=== PATIENT | female | born 1960 | race Caucasian/White ===

== ENCOUNTER 2020-11-18 04:12 | Inpatient (IN) | payer OTHER ==
[~2020-11-18] VITALS: Ht 167.6 cm; Wt 119.0 kg
[2020-11-18 04:35] LABS: Calcium, Ionized (POC) 1.08 mmol/L (1.10-1.46); Chloride (POC) 100 mmol/L (98-108); Creatinine (POC) 1.1 mg/dL (0.6-1.0); Glucose (ISTAT POC) 254 mg/dL (70-99); Hemoglobin (POC) 17.3 g/dL (12.0-16.0); Potassium (POC) 4.4 mmol/L (3.5-5.5); Sodium (POC) 136 mmol/L (135-148); Total CO2 (POC) 26 mmol/L (21-32)
[2020-11-18 04:36] LABS: PCO2 Arterial 87.1 mmHg (35-45); PO2 Arterial 118 mmHg (80-100); pH Blood Arterial 6.97 (7.35-7.45)
[2020-11-18 04:46] LABS: Hematocrit 49.9 % (33.0-51.0); Hemoglobin 15.3 g/dL (11.5-16.0); Mean Corpuscular HGB 28.7 pg (26.0-34.0); Mean Corpuscular HGB Conc 30.7 g/dL (31.5-36.5); Mean Corpuscular Volume 94 fL (80-100); Mean Platelet Volume 10.2 fL (9.1-12.4); NRBC ABSOLUTE 0.03 K/mm3 (0.00-0.02); NRBC Auto 0.1 /100 WBC (0.0-0.2); Platelet Count 197 K/mm3 (150-400); RDW Coefficient Variation 15.7 % (11.7-14.2); RDW Standard Deviation 53.5 fL (35.1-46.3); Red Blood Cell Count 5.33 M/mm3 (3.80-5.20); White Blood Cell Count 26.34 K/mm3 (4.00-11.30)
[2020-11-18 05:00] LABS: Albumin, Blood 2.9 g/dL (3.4-5.0); Albumin/Globulin Ratio 0.9 (0.8-1.8); Bilirubin, Total 0.4 mg/dL (0.1-1.0); Bun/Creatinine Ratio 35.1 (12.0-20.0); Calcium, Blood 7.8 mg/dL (8.5-10.1); Creatinine, Blood 0.91 mg/dL (0.40-1.00); Globulin, Blood 3.2 g/dL (2.2-4.0); Potassium, Blood 4.4 mmol/L (3.5-5.5); Total Protein, Blood 6.1 g/dL (6.4-8.2)
[2020-11-18 05:15] LABS: BAND PERCENT MAN 3 % (0-8); BASOPHILS PERCENT MAN 0 % (0-2); EOSINOPHILS ABSOLUTE MAN 0.26 K/mm3 (0.00-0.68); EOSINOPHILS PERCENT MAN 1 % (0-6); LYMPHOCYTES ABSOLUTE MAN 5.26 K/mm3 (0.84-5.20); LYMPHOCYTES PERCENT MAN 20 % (21-46); METAMYELOCYTE ABSOLUTE MAN 0.26 K/mm3 (0.00-0.00); METAMYELOCYTE PERCENT MAN 1 % (0-0); MONOCYTES ABSOLUTE MAN 1.84 K/mm3 (0.16-1.47); MONOCYTES PERCENT MAN 7 % (4-13); MYELOCYTE ABSOLUTE MAN 1.05 K/mm3 (0.00-0.00); MYELOCYTE PERCENT MAN 4 % (0-0); NEUTROPHILS ABSOLUTE MAN 17.64 K/mm3 (1.96-9.15); SEG NEUTROPHILS PERCENT MAN 64 % (41-73); TOTAL CELLS COUNTED 100
[2020-11-18 05:20] LABS: Troponin I 0.152 ng/mL (0.000-0.040)
[2020-11-18 05:58] LABS: PCO2 Arterial 67.1 mmHg (35-45); PO2 Arterial 100 mmHg (80-100); pH Blood Arterial 7.16 (7.35-7.45)
[2020-11-18 06:03] LABS: Source, Urine Catheter
[2020-11-18 06:06] LABS: Bilirubin, Urine Neg (Neg); Blood, Urine 5+ (Neg); Glucose Qualitative, Urine 3+ (Neg); Ketones, Urine Neg (Neg); Leukocyte Esterase, Urine 1+ (Neg); Nitrite, Urine Neg (Neg); Protein, Urine 4+ (Neg); Specific Gravity, Urine 1.025 (1.003-1.022); Urobilinogen, Urine NORM (Normal)
[2020-11-18 06:13] LABS: Appearance, Urine Hazy (Clear); Color, Urine Yellow (P-Yellow)
[2020-11-18 06:14] LABS: Red Blood Cells, Urine 50-100 /hpf (0-2)
[2020-11-18 06:15] LABS: Amorphous Heavy (0-Heavy); Bacteria Mod /hpf; Squamous Epithelial Cells Few /hpf (Few)
[2020-11-18 06:28] LABS: U Amphetamine Screen Not Detected; U Barbituate Screen Not Detected; U Benzodiazapine Screen DETECTED; U Buprenorphine Screen Not Detected; U Cannabinoids Screen DETECTED; U Cocaine Screen Not Detected; U Methadone Screen Not Detected; U Methamphetamine Screen Not Detected; U Opiates Screen DETECTED; U Oxycodone Screen DETECTED; U Phencyclidine Screen Not Detected; U Propoxyphene Screen Not Detected
--- NOTE | 2020-11-18 07:20 | NUR ---
PT ARRIVED TO ICU AT 0640. INTUBATED AND SEDATED. PT CURRENTLY RECEIVING AMIODARONE AND PROPOFOL @ 10 MCG. TEMP LAWS PATENT AND DRAINING TO GRAVITY. PT DIAPHORETIC. HR 130'S, SBP 140'S, SPO2 95%. REPORT GIVEN TO VIRGEN SANDHU.
[2020-11-18 09:16] LABS: Hematocrit 50.8 % (33.0-51.0); Hemoglobin 15.8 g/dL (11.5-16.0); Mean Corpuscular HGB 28.3 pg (26.0-34.0); Mean Corpuscular HGB Conc 31.1 g/dL (31.5-36.5); Mean Corpuscular Volume 91 fL (80-100); Mean Platelet Volume 9.8 fL (9.1-12.4); NRBC ABSOLUTE 0.04 K/mm3 (0.00-0.02); NRBC Auto 0.1 /100 WBC (0.0-0.2); Platelet Count 192 K/mm3 (150-400); RDW Coefficient Variation 15.9 % (11.7-14.2); RDW Standard Deviation 53.4 fL (35.1-46.3); Red Blood Cell Count 5.58 M/mm3 (3.80-5.20); White Blood Cell Count 39.22 K/mm3 (4.00-11.30)
[2020-11-18 09:35] LABS: SARS-Cov-2 (COVID-19) PCR, MMC NEGATIVE (NEGATIVE)
[2020-11-18 09:40] LABS: BAND PERCENT MAN 3 % (0-8); BASOPHILS PERCENT MAN 0 % (0-2); EOSINOPHILS PERCENT MAN 0 % (0-6); LYMPHOCYTES ABSOLUTE MAN 0.78 K/mm3 (0.84-5.20); LYMPHOCYTES PERCENT MAN 2 % (21-46); METAMYELOCYTE ABSOLUTE MAN 0.39 K/mm3 (0.00-0.00); METAMYELOCYTE PERCENT MAN 1 % (0-0); MONOCYTES ABSOLUTE MAN 3.13 K/mm3 (0.16-1.47); MONOCYTES PERCENT MAN 8 % (4-13); SEG NEUTROPHILS PERCENT MAN 86 % (41-73); TOTAL CELLS COUNTED 100
[2020-11-18 09:53] LABS: Albumin, Blood 2.8 g/dL (3.4-5.0); Albumin/Globulin Ratio 0.9 (0.8-1.8); Bilirubin, Total 0.8 mg/dL (0.1-1.0); Bun/Creatinine Ratio 33.3 (12.0-20.0); Creatinine, Blood 1.23 mg/dL (0.40-1.00); Globulin, Blood 3.1 g/dL (2.2-4.0); Potassium, Blood 4.6 mmol/L (3.5-5.5); Total Protein, Blood 5.9 g/dL (6.4-8.2)
[2020-11-18 09:59] LABS: Troponin I 0.896 ng/mL (0.000-0.040)
[2020-11-18] MEDS ORDERED: ASPIR 8181 M1 PO (10:58)
[2020-11-18] MEDS ORDERED: ALBU90OI INH (10:58)
[2020-11-18] MEDS ORDERED: CARV6.25 PO (10:59)
[2020-11-18] MEDS ORDERED: ATOR40TA PO (10:59)
[2020-11-18] MEDS ORDERED: BISA10S PR (10:59)
[2020-11-18] MEDS ORDERED: CYCL10 PO (11:00)
[2020-11-18] MEDS ORDERED: DEXA6 PO (11:00)
[2020-11-18] MEDS ORDERED: FENTANYL TD (11:02)
[2020-11-18] MEDS ORDERED: IPRAT-ALBUT 0.5-3 ML INH (11:12)
[2020-11-18] MEDS ORDERED: LORA.5 PO (11:28)
[2020-11-18] MEDS ORDERED: NITR.4SL SL (11:28)
[2020-11-18] MEDS ORDERED: NYSTRIT TOP (11:29)
[2020-11-18] MEDS ORDERED: OXYC10TA19 PO (11:29)
[2020-11-18] MEDS ORDERED: PROC5 PO (11:30)
[2020-11-18] MEDS ORDERED: THERA-D2000 UNIT PO (11:30)
--- NOTE | 2020-11-18 12:08 | NUR ---
Echocardiogram completed.
--- NOTE | 2020-11-18 12:49 | NUR ---
REASSESSMENT PT REMAINS INTUBATED AND SEDATED. SEDATION STOPPED THIS MORNING TO ASSESS NEURO STATUS AND PT WOKE UP AND WAS FOLLOWING COMMANDS. PT WAS VERY ANXIOUS WHEN SHE WAS AWAKE, MOUTHING HELP REPEATEDLY AND TRYING TO GET OUT OF BED DESPITE REASSURANCE. SEDATION RESTARTED AND PT RESTING COMFORTABLE. LUNGS ARE CLEAR, DIM. SR, DIFFICULTY OBTAINING BP READINGS. BEDSIDE MONITOR ONLY PROVIDING MAP READING. UNABLE TO AUSCULTATE MANUAL. SYSTOLIC READINGS OBTAINED VIA DOPPLER THROUGHOUT THE MORNING WITH SBP RUNNING IN THE 90 [address] EVANS AWARE OF ALL OF THIS. ORDERED FOR LEVOPHED GTT SO PROPOFOL COULD BE TITRATED UP. OG TO LIS WITH SM AMT OF BROWN OUTPUT. LAWS YELLOW WITH SEDIMENT. LASIX JUST GIVEN PER ORDERS. PT'S SONS HAVE BEEN AT THE BEDSIDE. LOTS OF EDUCATION ABOUT CARES AND PLAN FOR PT. DR. EVANS SPOKE WITH PT'S SON DIMITRI ABOUT PLAN OF CARE. HUSSEIN WITH PALLIATIVE CARE INVOLVED WELL. PT'S MED LIST OBTAINED FROM [facility] AND USED TO COMPLETE MED REC.
--- NOTE | 2020-11-18 18:07 | NUR ---
Spiritual care note: I met with pt's son, Lito, at bedside. He appeared emotionally and physically exhausted. Provided rosary and prayer. Son appreciaitve, Lito explains that pt recinded hospice a few days ago, because she ws feeling better and they all were "hoping for more quality time. Per her wishes, Lito started CPR. "This is what she wanted me to do." Affirmed obvious love and devotion and offered items for comfort to son. subpoena server services will remain available.
--- NOTE | 2020-11-18 18:29 | NUR ---
SHIFT SUMMARY PT REMAINED INTUBATED AND SEDATED TODAY. SHE WAKES EASILY WHEN SEDATION IS TURNED DOWN, RESPONDING APPROPRIATELY AND FOLLOWING COMMANDS. SHE WAS VERY ANXIOUS WHILE SHE WAS AWAKE, MOUTHING REPEATEDLY FOR HELP AND TRYING TO SIT UP IN BED. HER LUNGS ARE CLEAR, DIM. FIO2 TITRATED DOWN THROUGHOUT THE DAY. SR WITH HR IN THE 80S. LEVOPHED GTT GOING AND PROPOFOL TITRATED UP THROUGHOUT THE SHIFT TO MAINTAIN SEDATION. OG TO LIS WITH SCANT BROWN OUTPUT. FOELY WITH 1450ML OF URINE OUT. PT'S SONS HAVE TRADED BEING AT THE BEDSIDE THROUGHOUT THE SHIFT. BOTH HAVE BEEN BRIEFED BY DR. EVANS AND NURSING STAFF.
--- NOTE | 2020-11-18 22:15 | NUR ---
ASSUMED CARE. BESIDE REPORT RECEIVED. PT RESTING QUIETLY IN ROOM. PT VENTILATED, SETTINGS 20/400/5/40%. SEDATION RUNNING, PROPOFOL 30 MCG/KG/MIN. LEVOPHED RUNNING AT 5 MCG/MIN, AMIODARONE RUNNING AT O.5 MG/MIN. OG TUBE IN PLACE, LOW INTERMITTENT SUCTION, THICK BROWN DRAINAGE NOTED. LAWS CATHETER IN PLACE DRAINING CLEAR YELLOW URINE. VITAL SIGNS STABLE, NO OTHER ACUTE NEEDS NOTED AT THIS TIME.
--- NOTE | 2020-11-19 00:54 | NUR ---
MEDS AMIODARONE STOPPED AND ZOSYN IV STARTED. MULTIPLE IV'S ATTEMPTED WITHOUT SUCCESS.
--- NOTE | 2020-11-19 04:44 | NUR ---
At 2014, removed IO from LLE. No bleeding noted, dressing applied, site clear.
--- NOTE | 2020-11-19 06:27 | NUR ---
Shift summary. Pt continues on ventilator, settings 20/400/5/40%. Patient restless at beginning of shift, propofol increased from 30 to 35 with subsequent increase to 40 after am assessment/turning. Patient oriented to self, not following commands but nodded yes when asked if she was in pain. PRN dose of fentanyl given, pt resting quietly. Mulligan catheter in place, draining clear yellow urine. Mediport in L/chest dressing intact. Amiodarone stopped at 0100, currently infusing propofol 40 mcg/kg/min and levophed 5 mcg/min. Vital signs remained stable throughout shift, will continue to monitor and report off to dayshift rn.
[2020-11-19 07:58] LABS: BASOPHILS ABSOLUTE AUTO 0.07 K/mm3 (0.00-0.23); BASOPHILS PERCENT AUTO 0 % (0-2); EOSINOPHILS ABSOLUTE AUTO 0.06 K/mm3 (0.00-0.68); EOSINOPHILS PERCENT AUTO 0 % (0-6); Hematocrit 42.4 % (33.0-51.0); Hemoglobin 14.1 g/dL (11.5-16.0); IMMATURE GRAN ABSOLUTE AUTO 0.54 K/mm3 (0.00-0.10); IMMATURE GRAN PERCENT AUTO 2 % (0-1); LYMPHOCYTES ABSOLUTE AUTO 3.38 K/mm3 (0.84-5.20); LYMPHOCYTES PERCENT AUTO 15 % (21-46); MONOCYTES ABSOLUTE AUTO 0.86 K/mm3 (0.16-1.47); MONOCYTES PERCENT AUTO 4 % (4-13); Mean Corpuscular HGB 28.2 pg (26.0-34.0); Mean Corpuscular HGB Conc 33.3 g/dL (31.5-36.5); Mean Platelet Volume 10.2 fL (9.1-12.4); NEUTROPHILS ABSOLUTE AUTO 18.13 K/mm3 (1.96-9.15); NEUTROPHILS PERCENT AUTO 79 % (41-73); Platelet Count 146 K/mm3 (150-400); RDW Coefficient Variation 15.8 % (11.7-14.2); RDW Standard Deviation 48.5 fL (35.1-46.3); White Blood Cell Count 23.04 K/mm3 (4.00-11.30)
[2020-11-19 07:59] LABS: Mean Corpuscular Volume 85 fL (80-100)
[2020-11-19 08:17] LABS: Alanine Aminotransfer (ALT/SGP 134 U/L (12-78); Albumin, Blood 2.6 g/dL (3.4-5.0); Albumin/Globulin Ratio 0.9 (0.8-1.8); Alk Phos 57 U/L (50-136); Anion Gap 6 mmol/L (6-16); Aspartate Aminotrans (AST/SGOT 45 U/L (12-37); Bilirubin, Total 0.8 mg/dL (0.1-1.0); Blood Urea Nitrogen 38 mg/dL (8-24); Bun/Creatinine Ratio 27.3 (12.0-20.0); CO2, Blood 33 mmol/L (21-32); Calcium, Blood 7.1 mg/dL (8.5-10.1); Chloride, Blood 101 mmol/L (98-108); Creatinine, Blood 1.39 mg/dL (0.40-1.00); Globulin, Blood 2.8 g/dL (2.2-4.0); Glomerular Filtration Rate 41 (60-); Glucose, Blood 121 mg/dL (70-99); Potassium, Blood 3.3 mmol/L (3.5-5.5); Sodium, Blood 140 mmol/L (136-145); Total Protein, Blood 5.4 g/dL (6.4-8.2)
--- NOTE | 2020-11-19 10:59 | NUR ---
PT INTUBATED AND SEDATED WITH PROPOFOL. PT WILL OPEN EYE'S AND TRY TO TALK AROUND ETT. WILL NOD YES OR NO AND FOLLOW SIMPLE COMMANDS. FENTANYL GIVEN FOR PAIN. NO SIGN OF DISTRESS.
--- NOTE | 2020-11-19 16:09 | NUR ---
PT WAS TRIALED ON PS. WAS NOT ABLE TO KEEP CALM. THRASHING IN BED AND NOT FOLLOWING COMMANDS. PLACED BACK ON SEDATION AND AC SETTINGS.
--- NOTE | 2020-11-19 17:07 | NUR ---
Review of pt with nursing pt remains on vent. PT trialed on a wean godd reponse but anxious. Will follow upw with family and hopefully patient on future plan of care. goal is return to hospice.
--- NOTE | 2020-11-19 17:45 | NUR ---
SUMMARY PT INTUBATED AND SEDATED WITH PROPOFOL. DURING SEDATION VACATION AND SBT, PT BECAME VERY AGITATED AND UNABLE TO CALM BACK DOWN. THRASHES IN BED AND WILL NOT FOLLOW COMMANDS. PT MAKES IT KNOWN THAT SHE WANTS THE ETT OUT BUT WILL NOT FOLLOW COMMANDS. GIVING FENTANYL FOR PAIN. PT WILL NOD YES TO QUESTION OF PAIN. NO OTHER CHANGES TODAY.
[2020-11-19 19:53] LABS: Vancomycin, Random 16.4 ug/mL
[2020-11-20 03:22] LABS: BASOPHILS ABSOLUTE AUTO 0.03 K/mm3 (0.00-0.23); BASOPHILS PERCENT AUTO 0 % (0-2); EOSINOPHILS ABSOLUTE AUTO 0.19 K/mm3 (0.00-0.68); EOSINOPHILS PERCENT AUTO 1 % (0-6); Hemoglobin 13.6 g/dL (11.5-16.0); IMMATURE GRAN ABSOLUTE AUTO 0.34 K/mm3 (0.00-0.10); IMMATURE GRAN PERCENT AUTO 2 % (0-1); LYMPHOCYTES PERCENT AUTO 16 % (21-46); MONOCYTES ABSOLUTE AUTO 0.49 K/mm3 (0.16-1.47); MONOCYTES PERCENT AUTO 3 % (4-13); Mean Corpuscular HGB 28.4 pg (26.0-34.0); Mean Corpuscular Volume 84 fL (80-100); Mean Platelet Volume 9.6 fL (9.1-12.4); NEUTROPHILS ABSOLUTE AUTO 11.33 K/mm3 (1.96-9.15); NEUTROPHILS PERCENT AUTO 77 % (41-73); Platelet Count 108 K/mm3 (150-400); RDW Coefficient Variation 15.4 % (11.7-14.2); RDW Standard Deviation 46.6 fL (35.1-46.3); Red Blood Cell Count 4.79 M/mm3 (3.80-5.20); White Blood Cell Count 14.78 K/mm3 (4.00-11.30)
[2020-11-20 03:39] LABS: Calcium, Blood 7.2 mg/dL (8.5-10.1); Creatinine, Blood 1.32 mg/dL (0.40-1.00); Magnesium, Blood 2.1 mg/dL (1.6-2.4); Phosphorus, Blood 4.2 mg/dL (2.5-4.9); Potassium, Blood 2.5 mmol/L (3.5-5.5)
--- NOTE | 2020-11-20 05:30 | NUR ---
WEAN: RT @ BEDSIDE. PT VERY ANXIOUS, ABLE TO FOLLOW SOME COMMANDS - SQUEEZE HANDS & NODDING TO YES/NO QUESTIONS. INITIALLY PT WAS ABLE TO BE CONSOLED W/ VERBAL REDIRECTION & INSTRUCTIONS TO DEEP BREATH & SLOW RESP RATE. AFTER APPROX 15 MINS, PT BECAME INCREASINGLY ANXIOUS, THRASHING HEAD FROM SIDE TO SIDE, & TACHYPNEIC. WEAN TRIAL COMPLETE & PT PLACED BACK ON AC.
--- NOTE | 2020-11-20 06:12 | NUR ---
SHIFT SUMMARY: PT REMAINS INTUBATED & SEDATED. VENT: AC 20/400, 5/40. GTTs: PROPOFOL 55mcg/kg/min. T/O THE SHIFT, PT HAD SEVERAL EPISODES OF AGITATION, NOT BEING ABLE TO TOLERATE ETT OR FOLLOW COMMANDS. PRN FENTANYL WAS MILDLY HELPFUL IN RESOLVING ANXIETY. WEAN UNSUCCESSFUL THIS MORN, SEE PREVIOUS NOTATION. INTERMITTENT EPISODES OF HYPOTENSION, RESOLVED W/ POSITION CHANGES & DEC IN PROPOFOL GTT. NO ACUTE NEG CHANGES THIS SHIFT. WILL CONTINUE TO MONITOR UNTIL REPORT OFF TO ONCOMING RN.
--- NOTE | 2020-11-20 10:12 | NUR ---
CARE ASSUMED OF PT AT 0700. PT ON BIPAP 16/04, 65%. BIPAP REMOVED FOR ASSESSMENT AND ORAL CARE. PT SOMEWHAT DIFFICULT TO AROUSE. SPEECH MUMBLED. AT FIRST SPEECH NON-SENSICAL. PT PLACED ON AIRVO 55L, 65%. SATS 90-90%, RESP HIGH 30'S. DR HAGAN CALLED. STAT ABG ORDERED, SHOWS PT IS HYPOXIC. PT WAS ABLE TO FORM A FEW SHORT COHERENT SENTANCES PRIOR TO PLACING BACK ON BIPAP. PT C/O PAIN TO LOWER BACK; PT IS TOO SOMNOLENT FOR PAIN MEDS AT THIS TIME. PT OVERALL LETHARGIC, SOMNULENT, AND CONFUSED. DR HAGAN NOTIFIED THAT PT IS NOT SAFE TO TAKE PO. DECADRON ORDERED IV. LOPRESSOR IV GIVEN FOR HYPERTENSION, WITH GOOD EFFECT.
--- NOTE | 2020-11-20 10:19 | NUR ---
CARE ASSUMED OF PT AT 0700. PT SEDATED ON PROPOFOL AT 55MCG FOR MECH VENT. K+ 40MEQ INFUSING. PT GRIMACES W ORAL CARE AND MOVES ALL EXTREMITIES. WILL DECREASE SEDATION TOLERATED. OGT TUBE KINKED THIS AM. OGT TUBE REPLACED AND CONFIRMED W XRAY.
--- NOTE | 2020-11-20 10:39 | NUR ---
PT MORE AWAKE ON VENT ABLE TO NOD HEAD APPROPRIATELY TO QUESTIONS AND FOLLOW SIMPLE COMMANDS. PT NODS HEAD YES TO PAIN. PT HAS CA W METS AND HAS BROKEN RIBS/STERNUM FROM CPR. DR RODGERS TO ORDER ADDITIONAL PAIN MEDS/ TORADOL.
--- NOTE | 2020-11-20 12:33 | NUR ---
PT WIDE AWAKE AT 1200. PROPOFOL STOPPED AND SHORT WEANING TRIAL STARTED. PT EXTUBATED AT [address] RODGERS. PT REMAINS AWAKE AND ALERT. 2L PLACED VIA N/C. PT'S VOICE IS HOARSE, PT HAS A STRONG COUGH. PT'S SON CALLED AND UPDATED PER PT.
--- NOTE | 2020-11-20 13:27 | NUR ---
PT FELT SOB AFTER EXTUBATION. PT WEARS CPAP AT HOME AND REQUESTED CPAP. RT PLACED PT ON AUTO CPAP. THIS HELPED SOME. PT THEN FELT VERY ANXIOUS AND STATES SHE TAKES ATIVAN REG AT HOME. ATIVAN ORDERED AND GIVEN. PT W EXP WHEEZES; UDN ORDERED. SATS REMAIN STABLE. RESP EVEN AND UNLABORED. PT HAS STRONG WET PRODUCTIVE COUGH.
--- NOTE | 2020-11-20 18:35 | NUR ---
PT DID WELL OVERALL AFTER EXTUBATION TODAY. PT ANXIOUS, PT STATES SHE IS VERY ANXIOUS USUALLY AT HOME WELL. LUNGS WITH SOME SCATTERED WHEEZES TO UPPER LOBES, ALBUTEROL UDN GIVEN W GOOD EFFECT. CPAP AT BEDSIDE. PT HAS NOT NEEDED IT FOR MULTIPLE HOURS AND STATES SHE WILL USE IT WHEN SHE IS READY FOR BED. FENTANYL GIVEN FOR C/O GENERALIZED CHRONIC PAIN AND NEW RIB PAIN D/T FX'S. SATS HAVE BEEN STABLE >95% ON 2L VIA N/C. POWERGLIDE PLACED TODAY. PT HAD TWO BM'S TODAY, U/O SUFFICIENT. PT ABLE TO HELP WITH TURNS; GOOD STRENGTH. CLEAR LIQUIDS GIVEN FOR DINNER;TOLERATED WELL.
--- NOTE | 2020-11-20 19:49 | NUR ---
ASSUMING PT CARE: PT SITTING UP IN SEMI-LEIGH's IN BED, WATCHING TV. W/ INITIAL INTERACTION PT IS AGITATED, & EXPRESSES HER FRUSTRATIONS W/ HER CARE. STS STAFF HAS REFUSED TO GIVE HER A CPAP & DOES NOT WANT ANY FENTANYL BECAUSE "IT ALMOST KILLED ME AND IT IS TOO HARD ON MY HEART". PT INFORMED SHE HAS RECEIVED FENTANYL SEVERAL TIMES WHILE INTUBATED OVER THE PAST FEW DAYS & PT BECAME FIXATED ON HOW LONG SHE HAS BEEN ADMITTED. ORIENTED TO SELF, PLACE, & SITUATION, HOWEVER PT BELIEVES SHE IS HERE FOR HER "BRAIN TUMORS" & HAS DIFFICULTY BEING RECEPTIVE TO STAFF ATTEMPTS AT REORIENTATION. RT CALLED TO BEDSIDE & PT PLACED ON CPAP PER HER REQUEST.
[2020-11-20 21:53] LABS: Vancomycin, Trough 26.1 ug/mL (5.0-10.0)
[2020-11-21 04:20] LABS: BASOPHILS ABSOLUTE AUTO 0.03 K/mm3 (0.00-0.23); BASOPHILS PERCENT AUTO 0 % (0-2); EOSINOPHILS ABSOLUTE AUTO 0.27 K/mm3 (0.00-0.68); EOSINOPHILS PERCENT AUTO 3 % (0-6); Hematocrit 37.8 % (33.0-51.0); Hemoglobin 12.6 g/dL (11.5-16.0); IMMATURE GRAN ABSOLUTE AUTO 0.16 K/mm3 (0.00-0.10); IMMATURE GRAN PERCENT AUTO 2 % (0-1); LYMPHOCYTES ABSOLUTE AUTO 1.71 K/mm3 (0.84-5.20); LYMPHOCYTES PERCENT AUTO 20 % (21-46); MONOCYTES ABSOLUTE AUTO 0.42 K/mm3 (0.16-1.47); MONOCYTES PERCENT AUTO 5 % (4-13); Mean Corpuscular HGB 28.1 pg (26.0-34.0); Mean Corpuscular HGB Conc 33.3 g/dL (31.5-36.5); Mean Corpuscular Volume 84 fL (80-100); Mean Platelet Volume 10.3 fL (9.1-12.4); NEUTROPHILS PERCENT AUTO 71 % (41-73); Platelet Count 107 K/mm3 (150-400); RDW Coefficient Variation 15.4 % (11.7-14.2); RDW Standard Deviation 47.2 fL (35.1-46.3); Red Blood Cell Count 4.49 M/mm3 (3.80-5.20); White Blood Cell Count 8.79 K/mm3 (4.00-11.30)
[2020-11-21 04:45] LABS: Albumin, Blood 2.6 g/dL (3.4-5.0); Anion Gap 6 mmol/L (6-16); Blood Urea Nitrogen 42 mg/dL (8-24); Bun/Creatinine Ratio 30.9 (12.0-20.0); CO2, Blood 34 mmol/L (21-32); Calcium, Blood 7.4 mg/dL (8.5-10.1); Chloride, Blood 100 mmol/L (98-108); Creatinine, Blood 1.36 mg/dL (0.40-1.00); Glomerular Filtration Rate 42 (60-); Glucose, Blood 85 mg/dL (70-99); Magnesium, Blood 2.5 mg/dL (1.6-2.4); Phosphorus, Blood 4.1 mg/dL (2.5-4.9); Potassium, Blood 2.9 mmol/L (3.5-5.5); Sodium, Blood 140 mmol/L (136-145); Vancomycin, Random 22.5 ug/mL
--- NOTE | 2020-11-21 05:53 | NUR ---
SHIFT SUMMARY: PT RESTED WELL FOR MOST OF THE NIGHT. SHE AWOKE SEVERAL TIMES C/O ANXIETY & CP FROM RECEIVING CPR. SHE CONTINUES TO REFUSE FENTANYL FOR PAIN, HOWEVER SHE DOES RECEIVE LORAZEPAM & TOLERATES VERY WELL. SHE REPORTS TAKING 1mg PO LORAZEPAM @ HOME FOR SEVERE ANXIETY. PT C/O SEVERAL TIMES ABOUT BEING IN THE HOSPITAL, BECOMING VERY TEARFUL PT STATED "I HATE THIS, I DON'T WANT TO BE HERE, I HATE [facility]". PT DOES APPEAR TO CALM WHEN STAFF IS IN THE ROOM & IS ABLE TO CHAT W/ HER. CPAP REMAINED IN PLACE ALL NIGHT PER PT's REQUEST. SHE BELIEVES SHE WILL NOT BE ABLE TO BREATHE W/OUT IT. VS STABLE T/O SHIFT. x2 LOOSE, WATERY STOOLS. PT STS SHE HAS HAD ABD PAIN & DIARRHEA x2wks. DISCUSSED W/ HOSPITALIST, PLAN FOR C-DIFF PANEL. POSSIBLE STATUS CHANGE TODAY.
--- NOTE | 2020-11-21 09:00 | NUR ---
PT IS CURRENTLY RESTING WITH CPAP IN PLACE, PER HER REQUEST. PREFERS TO SIT IN HIGH FOWLERS, BECOMES VERY ANXIOUS WHEN HOB LOWERED. SHEIS A&O X4, FOLLOWS DIRECTIONS, PLEASANT AND COOPERATIVE, BUT DOES GET ANXIOUS EASILY, ESPECIALLY WHEN SHORT OF BREATH. MEDICATED WITH PRN LORAZEPAM. LUNG SOUNDS CLEAR BILATERALLY, DIMINISHED IN BASES. SATS >92% ON CPAP 2L. HR IN 70S, SBP 150S. TEMP LAWS DRAINING TO GRAVITY, DARK YELLOW URINE. PT USING BEDPAN. MEDIPORT LEFT UPPER CHEST, POWER GLIDE LEFT UPPER ARM, BOTH INFUSING AND WNL. PT HAS MILD EDEMA +1 BLE, LASIX GIVEN. PT CURRENTLY AWAITING BREAKFAST AND IS IN NO APPARENT DISTRESS. WILL CONTINUE TO MONITOR.
--- NOTE | 2020-11-21 10:30 | NUR ---
PT REQUESTED SHOWER. KITCHEN CLERK ASSISTED PT TO WHEELCHAIR AT BEDSIDE, HOWEVER PT STATED SHE WAS MUCH TOO WEAK TO COMPLETE SHOWER. PT WAS RETURNED TO BED AND RESTING WITH CPAP ON.
--- NOTE | 2020-11-21 14:00 | NUR ---
SHIFT SUMMARY PT A&O X4, PLEASANT AND COOPERATIVE T/O SHIFT. MINIMAL ANXIETY PT REQUESTED CPAP TO BE CONTINUOUS. O2 2L, SATS REMAINED AROUND 94-96%. LUNGS CLEAR BILATERALLY, DIM IN BASES. OCCASIONAL PRODUCTIVE COUGH, UNABLE TO OBSERVE SPUTUM DUE TO PT SWALLOWING. HR- SR 80-90'S, SBP'S 140-160'S. PT COMPLAINED OF RIB PAIN AND CHRONIC PAIN "EVERYWHERE", OXYCODONE Q8 PRN STARTED AND PT REPORTS PAIN REDUCED TO 9/10, WHICH IS HER TOLERABLE LEVEL. PT STARTED ON REGULAR DIET, MOST RECENT BM 11/21/20. LAWS DRAINING TO GRAVITY, DARK YELLOW URINE. MEDIPORT IN LEFT UPPER CHEST- TKO AT 10ML/HR. POWERGLIDE RIGHT UPPER ARM- SALINE LOCKED. PT TRANSFERRED TO PCU, REPORT GIVEN TO EDSON CASTELLANOS AND MARTHA, STUDENT NURSE.
--- NOTE | 2020-11-21 18:22 | NUR ---
SHIFT SUMMARY: PATIENT ARRIVED FROM ICU 10 AROUND 1645, SHIFT REPORT WAS OBTAINED FROM SLIME POLANCO, ARRIVED TO PCU 11/21/2020, ADMISSION SP CARDIAC ARREST, EXTUBATED YESTERDAY, CURENTLY ON CPAP WITH 2L, AND WHEN FEEDING 2L VIA NC, SHE HAS ORDERED PAIN AND ANXIETY MEDS, ONCE ARRIVED TO PCU I RAN ZOSYN THAT WAS FROM ICU. PATIENT HR HAS BEEN IN THE 70'S-80'S SINUS RHYTHM. LAWS CATHETER IN PLACE, DRAINING TO GRAVITY. PATIENT RECEIEVED MULTIPLE ROUNDS OF CPR WHEN SHE IN ROUTE TO ED, AND THIS IS WHERE HER ACUTE PAIN IS LOCATED. SHE IS A/O X 4 AND PLEASANT.
--- NOTE | 2020-11-21 23:43 | NUR ---
ASSUMED CARE OF PATIENT AT APPROXIMATELY 1905 FROM CHICKEN FANCIER MARTHA Major AND RODRICK Hernandez RN. PATIENT REPORTS CHEST PAIN FROM S/P CPR AND CARDIAC ARREST; MEDICATED PER EMAR; GIVEN PILLOWS. PATIENT ANXIOUS; MEDICATED PER EMAR. PATIENT VERY WEAK; DYSPNEA W/ ACTIVITY. NSR ON TELE; OXYGEN SATURATION ABOVE 90% ON 2LPM VIA NC OR CPAP. URINARY CATH DRAINING CLEAR YELLOW URINE. MEDIPORT TKO; PG HERIBERTO S/L. PATIENT DANGLES ON SIDE OF BED AT TIMES. PATIENT CURRENTLY RESTING IN BED; CALL LIGHT IN REACH; BED IN LOWEST POSISTION; BED ALARM ON
[2020-11-22 03:33] LABS: BASOPHILS ABSOLUTE AUTO 0.02 K/mm3 (0.00-0.23); BASOPHILS PERCENT AUTO 0 % (0-2); EOSINOPHILS ABSOLUTE AUTO 0.35 K/mm3 (0.00-0.68); EOSINOPHILS PERCENT AUTO 4 % (0-6); Hematocrit 41.1 % (33.0-51.0); Hemoglobin 13.4 g/dL (11.5-16.0); IMMATURE GRAN ABSOLUTE AUTO 0.17 K/mm3 (0.00-0.10); IMMATURE GRAN PERCENT AUTO 2 % (0-1); LYMPHOCYTES ABSOLUTE AUTO 2.23 K/mm3 (0.84-5.20); LYMPHOCYTES PERCENT AUTO 26 % (21-46); MONOCYTES ABSOLUTE AUTO 0.48 K/mm3 (0.16-1.47); MONOCYTES PERCENT AUTO 6 % (4-13); Mean Corpuscular HGB 28.4 pg (26.0-34.0); Mean Corpuscular HGB Conc 32.6 g/dL (31.5-36.5); Mean Corpuscular Volume 87 fL (80-100); Mean Platelet Volume 10.2 fL (9.1-12.4); NEUTROPHILS ABSOLUTE AUTO 5.42 K/mm3 (1.96-9.15); NEUTROPHILS PERCENT AUTO 63 % (41-73); Platelet Count 124 K/mm3 (150-400); RDW Coefficient Variation 15.1 % (11.7-14.2); RDW Standard Deviation 48.1 fL (35.1-46.3); Red Blood Cell Count 4.72 M/mm3 (3.80-5.20); White Blood Cell Count 8.67 K/mm3 (4.00-11.30)
[2020-11-22 03:47] LABS: Albumin, Blood 2.9 g/dL (3.4-5.0); Anion Gap 6 mmol/L (6-16); Blood Urea Nitrogen 41 mg/dL (8-24); Bun/Creatinine Ratio 30.8 (12.0-20.0); CO2, Blood 31 mmol/L (21-32); Calcium, Blood 7.8 mg/dL (8.5-10.1); Chloride, Blood 101 mmol/L (98-108); Creatinine, Blood 1.33 mg/dL (0.40-1.00); Glomerular Filtration Rate 43 (60-); Glucose, Blood 155 mg/dL (70-99); Magnesium, Blood 2.5 mg/dL (1.6-2.4); Phosphorus, Blood 2.6 mg/dL (2.5-4.9); Potassium, Blood 3.2 mmol/L (3.5-5.5); Sodium, Blood 138 mmol/L (136-145)
--- NOTE | 2020-11-22 06:33 | NUR ---
PATIENT SLEPT ABOUT FIVE HOURS LAST NIGHT; ANXIOUS; VSS; NO ACUTE CHANGES.
--- NOTE | 2020-11-22 15:49 | NUR ---
PT DISCHARGE: NO ACUTE CHANGES TO PT CONDITION. PT MAINTAINS A&O, DENIES SOB, PAIN R/T CPR TOLERABLE WITH PRN MEDICATIONS. PT WORKS WITH PT/OT, TOLERATES WELL. PT CLEARED FOR DC HOME. MEDIPORT HEPARIN LOCKED AND DEACCESSED, LAWS CATHETER DC'D, PT AMBULATES WITH FWW TO RESTROOM AND VOIDS PRIOR TO DC HOME. PAPERWORK AND INSTRUCTIONS PROVIDED TO PT, PT DEPARTS IN NAD.
--- NOTE | 2020-11-22 17:02 | NUR ---
ADMIT: 11/18/20 DISCHARGE: 11/22/20 DX: Cardiac Arrest CC: [email or web address] CALL: pt at [phone]: Home with dad and cousinCAREGIVER: Lito Villatoro [phone], Parent, Lise Durbin, Family Member, HP: Abdominal pain, atypical chest pain, CHF, CP, CAD, see listDME: nebulizer, O2 and equipmentCCM: Referral [address] [place] [address]: noneSUMMARY: Admit: - per chart review with Dr. Manning, pt is stable to d/c today with home health. Met with pt how reports that her dad will be coming to get her and is able to come get her today. She states that her pharmacy is [facility] and she has no DME needs. Pt declined to have home health come into the home. She states that her concerns are with her cancer that she had cured in the past with CBD oil and another deriverative of the marijuana plant but her cancer has now come back and she needs to focus on this. Pt does state that she has a caregiver that comes into the home at least twice a week. Pt reports that she has stairs in the back of her home and she does not use them. Pt d/c home today. Reviewed MICHELLE letter with pt. She acknowledged understanding. -bandar
--- NOTE | 2020-11-22 18:57 | NUR ---
Spiritual care note: Lengthy visit with Rudi before she was discharged. She reports a powerful wojciech and a beleif that God can heal her completely. She feels well-loved and supported by family. Prayer and gentle veterans rehabilitation counselor was well received. We had an easy rapport.
== END 2020-11-22 15:01 | disposition home health service (06) | DRG 291 ==
LOC: ER 04:12 → EDBD 04:12 → ICUW 06:58 → PCU 11-21 16:30 → ENPENDDIS 11-22 10:26 → PCU 11-22 15:01
PROVIDERS: Internal Medicine; Internal Medicine Critical Care Medicine; Pharmacist; Student in an Organized Health Care Education/Training Program; ADMIT Internal Medicine
PROC: 0BH18EZ Insertion of Endotracheal Airway into Trachea, Via Natural or Artificial Opening Endoscopic (ICD-10-PCS; principal; 2020-11-18)
PROC: 5A1945Z Respiratory Ventilation, 24-96 Consecutive Hours (ICD-10-PCS; 2020-11-18)
PROC: 3E033XZ Introduction of Vasopressor into Peripheral Vein, Percutaneous Approach (ICD-10-PCS; 2020-11-18)
DX: I11.0 Hypertensive heart disease with heart failure (principal); J96.01 Acute respiratory failure with hypoxia; J18.9 Pneumonia, unspecified organism; I46.2 Cardiac arrest due to underlying cardiac condition; S22.43XA Multiple fractures of ribs, bilateral, initial encounter for closed fracture; C79.31 Secondary malignant neoplasm of brain; N17.9 Acute kidney failure, unspecified; C56.9 Malignant neoplasm of unspecified ovary; M96.89 Other intraoperative and postprocedural complications and disorders of the musculoskeletal system; R65.10 Systemic inflammatory response syndrome (SIRS) of non-infectious origin without acute organ dysfunction; F11.20 Opioid dependence, uncomplicated; I47.2 Ventricular tachycardia; I50.43 Acute on chronic combined systolic (congestive) and diastolic (congestive) heart failure; I42.9 Cardiomyopathy, unspecified; Z20.822 Contact with and (suspected) exposure to COVID-19; J45.909 Unspecified asthma, uncomplicated; Z66 Do not resuscitate; Z51.5 Encounter for palliative care; I25.10 Atherosclerotic heart disease of native coronary artery without angina pectoris; R82.71 Bacteriuria; K21.9 Gastro-esophageal reflux disease without esophagitis; K44.9 Diaphragmatic hernia without obstruction or gangrene; E78.5 Hyperlipidemia, unspecified; D50.9 Iron deficiency anemia, unspecified; E66.01 Morbid (severe) obesity due to excess calories; F41.8 Other specified anxiety disorders; G47.00 Insomnia, unspecified; G43.909 Migraine, unspecified, not intractable, without status migrainosus; G62.9 Polyneuropathy, unspecified; Z86.718 Personal history of other venous thrombosis and embolism; I25.2 Old myocardial infarction; Z98.51 Tubal ligation status; Z90.89 Acquired absence of other organs; Z90.710 Acquired absence of both cervix and uterus; Z87.891 Personal history of nicotine dependence; Z79.82 Long term (current) use of aspirin; Z79.899 Other long term (current) drug therapy; Y84.8 Other medical procedures as the cause of abnormal reaction of the patient, or of later complication, without mention of misadventure at the time of the procedure
CPT/HCPCS: 31500; 31720; 36415; 36600; 51702; 70450; 71045; 71260; 80047; 80048; 80053; 80069; 80202; 81001; 82803; 83605; 83690; 83735; 83880; 84100; 84132; 84484; 85014; 85025; 87040; 87077; 87086; 87186; 93005; 93010; 93306; 94002; 94003; 94640; 94660; 94762; 96365-59; 96366-59; 96368; 96375-59; 97110; 97162; 97165; 99291-25; 99292; A9270; C1751; C9113; J0282; J1642; J1650; J1885; J1940; J2060; J2543; J2704; J3010; J3370; J3480; J7050; J7060; Q9967; U0004